=== PATIENT | male | born 1955 | race Caucasian/White ===

== ENCOUNTER 2018-12-15 10:26 | Observation (INO) | payer BC ==
[2018-12-15] MEDS ORDERED: ASPIRIN 81 MG TABLET, CHEWABLE PO ONE (10:47)
[2018-12-15 11:06] LABS: ABSOLUTE BASOPHILS # (AUTO) 0.1 10^3/uL (0.0-0.2); ABSOLUTE EOSINOPHILS # (AUTO) 0.2 10^3/uL (0.0-0.6); ABSOLUTE LYMPHOCYTES (AUTO) 1.6 10^3/uL (0.5-4.7); ABSOLUTE MONOCYTES (AUTO) 0.7 10^3/uL (0.1-1.4); ABSOLUTE NEUT (AUTO) 1.9 10^3/uL (1.7-8.2); BASOPHILS % (AUTO) 1.3 % (0-2); HEMATOCRIT 43.8 % (37.9-51.0); LYMPHOCYTES % (AUTO) 36.7 % (13-45); MEAN CORPUSCULAR HEMOGLOBIN 30.5 pg (27.0-33.4); MEAN CORPUSCULAR HGB CONC 34.3 g/dL (32.0-36.0); MEAN CORPUSCULAR VOLUME 89 fl (80-97); MONOCYTES % (AUTO) 16.3 % (3-13); PLATELET COUNT 196 10^3/uL (150-450); RED BLOOD COUNT 4.91 10^6/uL (4.35-5.55); RED CELL DISTRIBUTION WIDTH 13.7 % (11.5-14.0); SEGMENTED NEUTROPHILS % (AUTO) 41.7 % (42-78); TOTAL CELLS COUNTED % (AUTO) 100 %; WHITE BLOOD COUNT 4.5 10^3/uL (4.0-10.5)
[2018-12-15] MEDS ORDERED: DILTIAZEM HCL INJ 25 MG/5 ML VIAL IV ONE (11:09)
[2018-12-15] MEDS ORDERED: NORMAL SALINE 1000 ML 1,000 ML IV ONE (11:09)
[2018-12-15 11:29] LABS: ALBUMIN 4.4 g/dL (3.5-5.0); ALKALINE PHOSPHATASE 41 U/L (38-126); ANION GAP 8 (5-19); ASPARTATE AMINO TRANSFERASE 30 U/L (17-59); BILIRUBIN,DIRECT 0.4 mg/dL (0.0-0.4); BILIRUBIN,TOTAL 0.7 mg/dL (0.2-1.3); BLOOD UREA NITROGEN 18 mg/dL (7-20); CALCIUM 9.6 mg/dL (8.4-10.2); CARBON DIOXIDE 25 mmol/L (22-30); CHLORIDE 107 mmol/L (98-107); CREATINE KINASE 165 U/L (55-170); GLUCOSE 97 mg/dL (75-110); POTASSIUM 4.7 mmol/L (3.6-5.0); TOTAL PROTEIN 6.9 g/dL (6.3-8.2)
--- NOTE | 2018-12-15 11:40 | ER Document Report ---
Entered by LAUREEN SEGAL SCRIBE 12/15/18 1114 Acting as scribe for:DIANNA GRAY MD ED Cardiac - General Chief Complaint: Chest Pain Stated Complaint: CHEST PAIN Time Seen by Provider: 12/15/18 10:54 Mode of Arrival: Ambulatory Information source: Patient Notes: 63 year old male with history of right RCA stent placed in 2016 in [place] that presents today with complaints of chest pain that radiated up into his jaw with associated nausea. He states he did feel little dizzy when he stood up. Patient states these symptoms are quite similar to the symptoms he had prior to having the stent placed. He also reports that he did not sleep well last night that he tossed and turned since 3 AM when he woke up with back pain. He does have a history of low back p ain with surgeries, but has not had problems in quite some time. Denies any excessive stimulant use such as caffeine. Patient states he lives a very active lifestyle and is not on any medications other than a baby aspirin a day and fish oil. Patient states he was on atorvastatin in the past but he took himself off about a year ago as his cholesterol had corrected. Patient denies a history of atrial fibrillation. TRAVEL OUTSIDE OF THE [place] IN LAST 30 DAYS: No - Related Data Allergies/Adverse Reactions: No Known Allergies Allergy (Verified 12/15/18 10:27) Past Medical History - General Information source: Patient - Social History Smoking Status: Never Smoker Cigarette use (# per day): No Frequency of alcohol use: None Drug Abuse: None Lives with: Family Family History: Reviewed & Not Pertinent - Past Medical History Cardiac Medical History: Reports: Hx Coronary Artery Disease, Hx Hypercholesterolemia - Hx of, now diet controlled Past Surgical History: Reports: Hx Cardiac Catheterization - Right RCA stent placed 2015 Review of Systems - Review of Systems Constitutional: No symptoms reported EENT: No symptoms reported Cardiovascular: See HPI, Chest pain, Dizziness Respiratory: No symptoms reported Gastrointestinal: See HPI, Nausea Genitourinary: No symptoms reported Male Genitourinary: No symptoms reported Musculoskeletal: No symptoms reported Skin: No symptoms reported Hematologic/Lymphatic: No symptoms reported Neurological/Psychological: No symptoms reported -: Yes All other systems reviewed and negative Physical Exam - Vital signs Vitals: Resp Pulse Ox 12 94 12/15/18 10:45 12/15/18 10:45 - Notes Notes: Physical Exam: General: Alert, appears well. HEENT: Normocephalic. Atraumatic. PERRL. Extraocular movements intact. Oropharynx clear. Neck: Supple. Non-tender. Respiratory: No respiratory distress. Clear and equal breath sounds bilaterally. Cardiovascular: Irregularly irregular Abdominal: Normal Inspection. Non-tender. No distension. Normal Bowel Sounds. Back: No gross abnormalities. Extremities: Moves all four extremities. Upper extremities: Normal inspection. Normal ROM. Lower extremities: Normal inspection. No edema. Normal ROM. Neurological: Normal cognition. AAOx4. Normal speech. Psychological: Normal affect. Normal Mood. Skin: Warm. Dry. Normal color. Course - Vital Signs Vital signs: Temp Pulse Resp BP Pulse Ox 13 118/75 97 12/15/18 10:47 12/15/18 10:47 12/15/18 10:47 - Laboratory Result Diagrams: 12/15/18 10:45 12/15/18 10:45 Laboratory results interpreted by me: 12/15/18 12/15/18 10:45 10:45 Daw[place] % (Auto) 16.3 H Seg Neutrophils % 41.7 L Cholesterol 209.86 H - Diagnostic Test Radiology reviewed: Image reviewed, Reports reviewed - Chest x-ray is un remarkable - EKG Interpretation by Ks EKG shows normal: [place], Intervals, QRS Complexes, ST-T Waves Rate: Tachycardia - 139 Rhythm: A.Fib When compared to previous EKG there are: Previous EKG unavailable - Consults Dr. Mace Time consulted: 13:56 Consulted provider: will come to ER Critical Care Note - Critical Care Note Total time excluding time spent on procedures (mins): 35 Discharge - Discharge Clinical Impression: New onset atrial fibrillation, Atrial fibrillation with rapid ventricular response Chest pain Qualifiers: Chest pain type: unspecified Qualified Code(s): R07.9 - Chest pain, unspecified Coronary artery disease Qualifiers: Coronary Disease-Associated Artery/Lesion type: [place] artery [place] vs. transplanted heart: [place] heart Associated angina: angina presence unspecified Qualified Code(s): I25.10 - Atherosclerotic heart disease of [place] coronary artery without angina pectoris Condition: Stable Disposition: ADMITTED INPATIENT Admitting Provider: Nakita (Hospitalist) Unit Admitted: Telemetry Scribe Attestation: 12/15/18 14:02 I personally performed the services described in the documentation, reviewed and edited the documentation which was dictated to the scribe in my presence, and it accurately records my words and actions. I personally performed the services described in the documentation, reviewed and edited the documentation which was dictated to the scribe in my presence, and it accurately records my words and actions.
[2018-12-15 11:42] LABS: CREATINE KINASE MB 2.04 ng/mL (<4.55); TROPONIN I 0.013 ng/mL
--- NOTE | 2018-12-15 11:55 | RADIOLOGY REPORT (SQ) ---
EXAM DESCRIPTION: CHEST 2 VIEWS COMPLETED DATE/TIME: 12/15/2018 11:46 am REASON FOR STUDY: cp COMPARISON: None. EXAM PARAMETERS: NUMBER OF VIEWS: two views TECHNIQUE: Digital Frontal and Lateral radiographic views of the chest acquired. RADIATION DOSE: NA LIMITATIONS: none FINDINGS: LUNGS AND PLEURA: No opacities, masses or pneumothorax. No pleural effusion. MEDIASTINUM AND HILAR STRUCTURES: No masses or contour abnormalities. HEART AND VASCULAR STRUCTURES: Heart normal size. No evidence for failure. BONES: No acute findings. HARDWARE: None in the chest. OTHER: No other significant finding. IMPRESSION: NO ACUTE RADIOGRAPHIC FINDING IN THE CHEST. TECHNICAL DOCUMENTATION: JOB ID: [id number] [employer]- All Rights Reserved Reading location - IP/workstation name: [email or web address]
[2018-12-15 12:00] LABS: CHOLESTEROL 209.86 mg/dL (0-200)
--- NOTE | 2018-12-15 14:38 | PDOC H&P ---
History of Present Illness Admission Date/PCP: 12/15/18 14:08 History of Present Illness: LAURA VALERA is a 63 year old male with a history of coronary artery disease status post cardiac catheterization with placement of 1 stent 3 years ago who presents today after having symptoms this morning that reminded him of his event 3 years ago. He said that he found that he had muscle tension in both arms, some sweating, heart racing, but no real pain. He said that he is not had to take his nitroglycerin in quite some time, and that the prescription that he got 3 years ago is the same one that he has now. He was writing an email whenever the event happened this morning around 7:30 AM. He took 1 of the nitroglycerin and felt like it was not doing anything as of 5 minutes later he took another one and said he felt like he was getting some relief at that point. He came to the ER to be evaluated. He was found to have a normal troponin but to be in new onset atrial fibrillation with rapid ventricular response. He got 10 mg of IV Cardizem and this brought his heart rate from the 130s into the 80s. He says that he exercises regularly and is very meticulous about his diet ever since the event 3 years ago. His confirms all of this. He does not smoke. The only medications he takes at home or fish oil and an aspirin. Past Medical History Cardiac Medical History: Reports: Coronary Artery Disease, Hyperlipidema - Hx of, now diet controlled Past Surgical History Past Surgical History: Reports: Cardiac Catheterization - Right RCA stent placed 2015 Social History Lives with: Family Smoking Status: Never Smoker Family History Family History: Reviewed & Not Pertinent Parental Family History Reviewed: Yes - Hypertension Children Family History Reviewed: Yes - Nothing known Sibling(s) Family History Reviewed.: Yes Medication/Allergy Allergies/Adverse Reactions: No Known Allergies Allergy (Verified 12/15/18 10:27) Review of Systems All systems: reviewed and no additional remarkable complaints except as stated - All systems were reviewed and were negative except as noted in the HPI Physical Exam Vital Signs: Temp Pulse Resp BP Pulse Ox 13 118/75 97 12/15/18 10:47 12/15/18 10:47 12/15/18 10:47 Intake & Output 12/14/18 12/15/18 12/16/18 06:59 06:59 06:59 Intake Total 1000 Balance 1000 Weight 82.5 kg General appearance: PRESENT: no acute distress, cooperative, well-developed, well-nourished Head exam: PRESENT: atraumatic, normocephalic Eye exam: PRESENT: EOMI, PERRLA. ABSENT: conjunctival injection, nystagmus, scleral icterus Ear exam: PRESENT: normal external ear exam Mouth exam: PRESENT: moist, neck supple Throat exam: ABSENT: post pharyngeal erythema Neck exam: PRESENT: full ROM. ABSENT: carotid bruit, JVD, lymphadenopathy, meningismus, tenderness, thyromegaly Respiratory exam: PRESENT: clear to auscultation eugenio, symmetrical, unlabored. ABSENT: accessory muscle use, chest wall tenderness, crackles, prolonged expiratory phas, rhonchi, tachypnea, wheezes Cardiovascular exam: PRESENT: irregular rhythm Pulses: PRESENT: normal carotid pulses Vascular exam: PRESENT: normal capillary refill GI/Abdominal exam: PRESENT: normal bowel sounds, soft. ABSENT: distended, guarding, rebound, tenderness Extremities exam: ABSENT: clubbing, pedal edema Musculoskeletal exam: PRESENT: normal inspection. ABSENT: deformity Neurological exam: PRESENT: alert, awake, oriented to person, oriented to place, oriented to time, oriented to situation, CN II-XII grossly intact. ABSENT: motor sensory deficit Psychiatric exam: PRESENT: appropriate affect, normal mood Skin exam: PRESENT: dry, warm Results Laboratory Results: 12/15/18 10:45 12/15/18 10:45 12/15/18 12/15/18 12/15/18 10:45 10:45 10:45 WBC 4.5 RBC 4.91 Hgb 15.0 Hct 43.8 MCV 89 MCH 30.5 MCHC 34.3 RDW 13.7 Plt Count 196 Seg Neutrophils % 41.7 L Sodium 140.0 Potassium 4.7 Chloride 107 Carbon Dioxide 25 Anion Gap 8 BUN 18 Creatinine 0.75 Est GFR ( Amer) > 60 Glucose 97 Calcium 9.6 Total Bilirubin 0.7 AST 30 Alkaline Phosphatase 41 Total Protein 6.9 Albumin 4.4 Cholesterol 209.86 H 12/15/18 12/15/18 10:45 10:45 Creatine Kinase 165 CK-MB (CK-2) 2.04 Troponin I 0.013 Impressions: Chest X-Ray 12/15/18 00:00 IMPRESSION: NO ACUTE RADIOGRAPHIC FINDING IN THE CHEST. Assessment and Plan - Diagnosis (1) Atrial fibrillation with rapid ventricular response Is this a current diagnosis for this admission?: Yes Plan: Responded very well to a single dose of IV Cardizem. We will trend his troponins and start p.o. Cardizem every 6 hours. We will get an echocardiogram. Assuming he remains asymptomatic, will have a stress test for tomorrow. He has not had a cardiac evaluation of any sort since his cardiac catheterization 3 years ago when the stent was placed. His chads VASC score was 1. (2) Coronary artery disease Qualifiers: Coronary Disease-Associated Artery/Lesion type: [place] artery [place] vs. transplanted heart: [place] heart Associated angina: angina presence unspecified Qualified Code(s): I25.10 - Atherosclerotic heart disease of [place] coronary artery without angina pectoris Is this a current diagnosis for this admission?: Yes Plan: He was only on aspirin and fish oil at home. We will continue the aspirin. We will start on Lipitor. - Time Time Spent with patient: 35 or more minutes
[2018-12-15] MEDS ORDERED: REGADENOSON INJ 0.4 MG/5 ML DISP.SYRIN IV ONE (14:44)
[2018-12-15] MEDS: ENOXAPARIN SODIUM INJ 100 MG/1 ML DISP.SYRIN SUBCUT SCH (18:27)
[2018-12-15] MEDS: DILTIAZEM HCL 30 MG TABLET PO SCH ×2 (18:27→23:30)
--- NOTE | 2018-12-15 19:07 | EKG REPORT ---
SEVERITY:- ABNORMAL ECG - ATRIAL FIBRILLATION BORDERLINE LEFT AXIS DEVIATION : Confirmed by: Uri Thomas MD 15-Dec-2018 19:06:48
--- NOTE | 2018-12-15 19:07 | EKG REPORT ---
SEVERITY:- ABNORMAL ECG - ATRIAL FIBRILLATION, V-RATE 115-160 BORDERLINE PROLONGED QT INTERVAL : Confirmed by: Uri Thomas MD 15-Dec-2018 19:07:07
[2018-12-15] MEDS ORDERED: DEXTROSE 50%-WATER 25 GM/50 ML DISP.SYRIN IV PRN ×2 (20:03)
[2018-12-15] MEDS ORDERED: DEXTROSE 40% GEL 15 GM TUBE PO PRN ×2 (20:03)
[2018-12-15] MEDS ORDERED: GLUCAGON,HUMAN RECOMB 1 MG INJ SUBCUT PRN (20:03)
[2018-12-15] MEDS ORDERED: ATORVASTATIN CALCIUM 40 MG TABLET PO SCH (22:00)
[2018-12-16 03:19] LABS: HEMOGLOBIN 13.5 g/dL (13.5-17.0); MEAN CORPUSCULAR HEMOGLOBIN 30.9 pg (27.0-33.4); MEAN CORPUSCULAR HGB CONC 34.5 g/dL (32.0-36.0); MEAN CORPUSCULAR VOLUME 90 fl (80-97); PLATELET COUNT 159 10^3/uL (150-450); RED BLOOD COUNT 4.36 10^6/uL (4.35-5.55); WHITE BLOOD COUNT 4.6 10^3/uL (4.0-10.5)
[2018-12-16 03:43] LABS: ANION GAP 7 (5-19); BLOOD UREA NITROGEN 19 mg/dL (7-20); CARBON DIOXIDE 26 mmol/L (22-30); CHLORIDE 105 mmol/L (98-107); CHOLESTEROL 174.16 mg/dL (0-200); GLUCOSE 89 mg/dL (75-110); POTASSIUM 4.3 mmol/L (3.6-5.0); TRIGLYCERIDES 100 mg/dL (<150)
[2018-12-16] MEDS ORDERED: NORMAL SALINE 500 ML IV ONE (03:45)
[2018-12-16 03:54] LABS: DIRECT LDL 119 mg/dL (<100)
[2018-12-16] MEDS: DILTIAZEM HCL 30 MG TABLET PO SCH ×3 (05:11→18:19)
[2018-12-16] MEDS: ENOXAPARIN SODIUM INJ 100 MG/1 ML DISP.SYRIN SUBCUT SCH ×2 (05:29→18:19)
--- NOTE | 2018-12-16 07:16 | EKG REPORT ---
SEVERITY:- OTHERWISE NORMAL ECG - SINUS BRADYCARDIA : Confirmed by: Uri Thomas MD 16-Dec-2018 07:15:33
--- NOTE | 2018-12-16 07:16 | EKG REPORT ---
SEVERITY:- OTHERWISE NORMAL ECG - SINUS BRADYCARDIA : Confirmed by: Uri Thomas MD 16-Dec-2018 07:15:44
[2018-12-16] MEDS ORDERED: ASPIRIN 81 MG TABLET, CHEWABLE PO SCH (10:00)
[2018-12-16 17:55] VITALS: BP 122/68
--- NOTE | 2018-12-16 21:25 | DRAGON STRESS TEST REPORT ---
Intravenous Lexiscan Cardiolite stress test using single photon emmision computerized tomography. Date of procedure: 12/16/2018.Ordering Provider: Dr. Ronny Mace. Patient's status: In Patient. Indication: Chest pain, in a patient with a history of CAD, RCA stent and paroxysmal atrial fibrillation.. Coronary risk factors: Age, and dyslipidemia. Resting EKG: Sinus Rhythm. Within Normal Limits. Stress EKG: No changes of ischemia. The patient had no chest pain or discomfort, and there were no arrhythmias seen. Reason for termination: Protocol. Conclusions: Normal EKG and hemodynamic response to IV Lexiscan. Nuclear data: At rest the patient was given 1.48 millicuries of technetium 99m sestamibi injected intravenously. As per protocol rest non gated SPECT images were obtained. Subsequently the patient was given intravenous Lexiscan at a dose of 0.4 mg in 5 mL intravenously, followed by flush with normal saline. Subsequently the stress dose of 37.2 millicuries of technetium 99m sestamibi was injected intravenously. As per protocol stress gated images were obtained. Nuclear interpretation: Review of images showed that there is a small area of perfusion defect in the stress images involving a small area of the left ventricle apex, which normalizes in the rest images. This area had normal motion contraction and thickening by gated study. The rest of the segments of the myocardium had normal perfusion at rest, and normal perfusion post stress with IV Lexiscan. All segments of the myocardium had normal motion, contraction, and thickening by gated study. T. I D. ratio was normal at 1.10. There is no transient ischemic dilatation of the left ventricle. Computer read rest, and stress left ventricular ejection fraction were 54 %, and 49 %, respectively. Visually both the stress and rest ejection fractions were normal, and greater than 55%. Conclusion: 1. There is scintigraphic evidence of Lexiscan induced myocardial ischemia involving a small area of the left ventricle apex. 2. There is no scintigraphic evidence of myocardial infarction/scar. Recommendations: 1. Aggressive treatment of coronary artery disease. 2. Aggressive risk factor modification, and treating the underlying co- morbidities. Correlate clinically. MTDD
--- NOTE | 2018-12-17 19:30 | XCELERA REPORT ---
[address] [address] Transthoracic Echocardiogram Report Name: LAURA VALERA Age: 63 yrs Gender: Male : 1955 Patient Status: Inpatient Patient Location: [address] [place] [address] Study Date: 12/16/2018 09:30 AM Height: 70 in Weight: 182 lb BSA: 2.0 m2 Procedure: A two-dimensional transthoracic echocardiogram with color flow and Doppler was performed. The study was technically limited with all images being suboptimal in quality. Reason For Study: new-onset atrial fibrillation History: new-onset atrial fibrillation. Ordering Physician: SYDNEE TELLEZ Performed By: Ana Al Interpretation Summary The left ventricle is normal in size. There is normal left ventricular wall thickness. The left ventricular ejection fraction is normal. LV EF is 65% Doppler measurements suggest normal left ventricular diastolic function The left ventricular wall motion is normal. There is no thrombus. No subcostal views hence cannot assess ASD,VSD ,or PFO. The right ventricle is normal in size and function. The right atrium is normal. The left atrial size is normal. There is no evidence of mitral valve prolapse. There is no vegetation seen on the mitral valve. There is no mitral valve stenosis. There is a trace amount of mitral regurgitation There is no aortic valvular vegetation. There is no aortic valve stenosis There is no LVOT obstruction. There is a trace to mild amount of aortic regurgitation There is no tricuspid stenosis. There is a trace amount of tricuspid regurgitation Right ventricular systolic pressure is normal. RVSP is 23 mm of Hg , with RA mean of 10. There is no pulmonic valvular stenosis. There is a trace amount of pulmonic regurgitation The aortic root is normal size. The inferior vena cava was not visualized There is no pericardial effusion. MMode/2D Measurements & Calculations RVDd: 3.6 cm LVIDd: 5.2 cm FS: 39.7 % Ao root diam: 3.6 cm IVSd: 0.85 cm LVIDs: 3.1 cm EDV(Teich): 126.7 ml Ao root area: 9.9 cm2 LVPWd: 0.95 cm ESV(Teich): 38.2 ml EF(Teich): 69.9 % Doppler Measurements & Calculations MV E max gaston: MV dec slope: Ao V2 max: AI max gaston: 53.4 cm/sec 249.2 cm/sec2 125.5 cm/sec 369.4 cm/sec MV A max gaston: MV dec time: Ao max PG: AI max P.6 mmHg 49.9 cm/sec 0.21 sec 6.3 mmHg AI dec slope: MV E/A: 1.1 125.8 cm/sec2 AI P1/2t: 860.2 msec LV V1 max PG: PA V2 max: PI end-d gaston: TR max gaston: 3.7 mmHg 90.0 cm/sec 85.1 cm/sec 180.0 cm/sec LV V1 max: PA max P.2 mmHg TR max P.0 mmHg 96.1 cm/sec Pulm Sys Gaston: 47.3 cm/sec Pulm Mireles Gaston: 43.0 cm/sec Pulm A Revs Gaston: 21.9 cm/sec Pulm A Revs Dur: 0.12 sec Pulm S/D: 1.1 Left Ventricle The left ventricle is normal in size. There is normal left ventricular wall thickness. The left ventricular ejection fraction is normal. LV EF is 65%. Doppler measurements suggest normal left ventricular diastolic function. The left ventricular wall motion is normal. There is no thrombus. No subcostal views hence cannot assess ASD,VSD ,or PFO. Right Ventricle The right ventricle is normal in size and function. Atria The right atrium is normal. The left atrial size is normal. Mitral Valve There is no evidence of mitral valve prolapse. There is no vegetation seen on the mitral valve. There is no mitral valve stenosis. There is a trace amount of mitral regurgitation. Aortic Valve There is no aortic valvular vegetation. There is no aortic valve stenosis. There is no LVOT obstruction. There is a trace to mild amount of aortic regurgitation. Tricuspid Valve There is no tricuspid stenosis. There is a trace amount of tricuspid regurgitation. Right ventricular systolic pressure is normal. RVSP is 23 mm of Hg , with RA mean of 10. Pulmonic Valve There is no pulmonic valvular stenosis. There is a trace amount of pulmonic regurgitation. Great Vessels The aortic root is normal size. The inferior vena cava was not visualized. Effusions There is no pericardial effusion. : SYDNEE TELLEZ Lakshmi
--- NOTE | 2018-12-19 18:18 | PDOC DISCHARGE SUMMARY ---
General - Admit/Disc Date/PCP Admission Date/Primary Care Provider: 12/15/18 14:08 Discharge Date: 12/16/18 - Discharge Diagnosis (1) Atrial fibrillation with rapid ventricular response Is this a current diagnosis for this admission?: Yes Summary: Resolved. Patient has converted back to NSR and remains rate controlled on oral diltiazem. [id number] Score: 0; 0.2% yearly CVA risk. Patient is encouraged to continue daily aspirin therapy; he has not started on chronic anticoagulation at this time. (2) Chest pain Is this a current diagnosis for this admission?: Yes Summary: Resolved; patient has had no further episodes of chest discomfort Initially presented in Afib w/ RVR. He is now in normal sinus rhythm. Troponins 0.013-> 0.288-> 0.306-> 0.181 Nuclear stress test revealed evidence of Lexiscan induced myocardial ischemia involving a small area of the left ventricle apex. There was no evidence of my ocardial infarction. Spoke with Dr. Lane prior to patient discharge. Recommended aggressive medical treatment with close cardiology follow-up. Patient did confirm that he is established with a fire prevention research engineer in [place]. He is instructed to contact their office on the next business days to notify them of his admission and findings; follow-up as directed. Patient is discharged home with instructions to continue daily aspirin therapy and with prescriptions for diltiazem and nitroglycerin SL tabs. He is advised to return to the emergency department as needed for concerning symptoms. (3) Coronary artery disease Is this a current diagnosis for this admission?: Yes Summary: Continue aspirin, omega-3 fatty acid oil, diltiazem. Evaluation and management as above. (4) New onset atrial fibrillation Is this a current diagnosis for this admission?: Yes Summary: PAF; patient now in normal sinus rhythm. Continue diltiazem 30 mg every 8 hours. Follow-up with outpatient cardiology. - Additional Information Resuscitation Status: Full Code Discharge Diet: Cardiac Discharge Activity: Activity As Tolerated, Balance Activity w/Rest Prescriptions: Diltiazem HCl [Cardizem 30 mg Tablet] 1 tab PO Q8 #90 tab Nitroglycerin [Nitrostat 0.4 mg (1/150 Gr) Tabs 25/Bottle] 1 tab SL Q5MP PRN #25 tab.subl PRN Reason: Home Medications: Aspirin [Adult Low Dose Aspirin EC] 81 mg PO DAILY 12/15/18 [place]-3 Fatty Acids/Fish Oil [Fish Oil 1,000 mg Capsule] 1,800 mg PO DAILY 12/15/18 Diltiazem HCl [Cardizem 30 mg Tablet] 1 tab PO Q8 #90 tab 12/16/18 Nitroglycerin [Nitrostat 0.4 mg (1/150 Gr) Tabs 25/Bottle] 1 tab SL Q5MP PRN #25 tab.subl 12/16/18 History of Present Illness History of Present Illness: Per H&P by Dr. Mace: LAURA VALERA is a 63 year old male with a history of coronary artery disease status post cardiac catheterization with placement of 1 stent 3 years ago who presents today after having symptoms this morning that reminded him of his event 3 years ago. He said that he found that he had muscle tension in both arms, some sweating, heart racing, but no real pain. He said that he is not had to take his nitroglycerin in quite some time, and that the prescription that he got 3 years ago is the same one that he has now. He was writing an email whenever the event happened this morning around 7:30 AM. He took 1 of the nitroglycerin and felt like it was not doing anything as of 5 minutes later he took another one and said he felt like he was getting some relief at that point. He came to the ER to be evaluated. He was found to have a normal troponin but to be in new onset atrial fibrillation with rapid ventricular response. He got 10 mg of IV Cardizem and this brought his heart rate from the 130s into the 80s. He says that he exercises regularly and is very meticulous about his diet ever since the event 3 years ago. His confirms all of this. He does not smoke. The only medications he takes at home or fish oil and an aspirin. Physical Exam Vital Signs: Temp Pulse Resp BP Pulse Ox 98.4 F 57 L 18 122/68 100 12/16/18 17:08 12/16/18 17:08 12/16/18 17:08 12/16/18 17:08 12/16/18 17:08 General appearance: PRESENT: no acute distress, cooperative, well-developed, well-nourished - Overweight Head exam: PRESENT: atraumatic, normocephalic Eye exam: PRESENT: conjunctiva pink, EOMI, PERRLA. ABSENT: scleral icterus Ear exam: PRESENT: normal external ear exam Mouth exam: PRESENT: moist, tongue midline Neck exam: ABSENT: carotid bruit, JVD, lymphadenopathy, thyromegaly Respiratory exam: PRESENT: clear to auscultation eugenio, symmetrical, unlabored. ABSENT: rales, rhonchi, wheezes Cardiovascular exam: PRESENT: RRR, +S1, +S2. ABSENT: diastolic murmur, rubs, systolic murmur Pulses: PRESENT: normal dorsalis pedis pul Vascular exam: PRESENT: normal capillary refill GI/Abdominal exam: PRESENT: normal bowel sounds, soft. ABSENT: distended, guarding, mass, organolmegaly, rebound, tenderness Rectal exam: PRESENT: deferred Extremities exam: PRESENT: full ROM. ABSENT: calf tenderness, clubbing, pedal edema Neurological exam: PRESENT: alert, awake, oriented to person, oriented to place, oriented to time, oriented to situation, CN II-XII grossly intact. ABSENT: motor sensory deficit Psychiatric exam: PRESENT: appropriate affect, normal mood. ABSENT: homicidal ideation, suicidal ideation Skin exam: PRESENT: dry, intact, warm. ABSENT: cyanosis, rash Results Laboratory Results: 12/16/18 02:29 12/16/18 02:29 12/15/18 12/15/18 12/15/18 10:45 10:45 14:47 Creatine Kinase 165 CK-MB (CK-2) 2.04 Troponin I 0.013 0.288 12/15/18 12/16/18 20:50 02:29 Creatine Kinase CK-MB (CK-2) Troponin I 0.306 0.181 Impressions: Chest X-Ray 12/15/18 00:00 IMPRESSION: NO ACUTE RADIOGRAPHIC FINDING IN THE CHEST. Qualifiers - * PATIENT BEING DISCHARGED WITH ANY OF THE FOLLOWING DIAGNOSIS: No Acute Heart Failure - Is this a Heart Failure Patient?: No Plan Discharge Plan: Discharged to home with self-care. Follow-up with primary care provider within 1 week. Patient is instructed to call his established fire prevention research engineer and follow-up as instructed. Continue daily aspirin therapy. Return to the emergency department as needed for concerning symptoms. Time Spent: Greater than 30 Minutes
== END 2018-12-16 20:14 | disposition home or self-care (01) ==
LOC: ER 10:26 → INTOOBSV 14:08 → EH 14:08 → 5 16:21
PROVIDERS: ADMIT Family Medicine; ATTEND Family Medicine
DX: I48.91 Unspecified atrial fibrillation (principal); R07.89 Other chest pain; I25.10 Atherosclerotic heart disease of native coronary artery without angina pectoris; R11.0 Nausea; M54.9 Dorsalgia, unspecified; Z79.899 Other long term (current) drug therapy; Z79.82 Long term (current) use of aspirin; Z95.5 Presence of coronary angioplasty implant and graft; Z82.49 Family history of ischemic heart disease and other diseases of the circulatory system; Z98.890 Other specified postprocedural states
CPT/HCPCS: 93005 ×2; 99291; 96361; 96374; 36415 ×2; 82553; 82465; 82550; 84443; 85025; 85027; 80048; 80053; 84484 ×2; 80061; 93306; 93017; 71046; 78452; 93010 ×2; G0378 ×3; A9500; J2785; J3490 ×3; J7030; J7040; J1650 ×2; Q9969

== ENCOUNTER 2019-04-08 11:09 | Emergency (ER) | payer BC ==
[2019-04-08] MEDS ORDERED: ASPIRIN 81 MG TABLET, CHEWABLE PO ONE (12:04)
--- NOTE | 2019-04-08 12:09 | ER Document Report ---
ED Medical Screen (RME) - General Stated Complaint: CHEST PAIN Time Seen by Provider: 04/08/19 11:58 Mode of Arrival: Ambulatory Information source: Patient Notes: 63-year-old male patient with chest pain that began yesterday at 5:30 PM. Patient reports history of NE x1 with 1 stent placement several years ago. He sees a director of capital giving in [place]. He reports when he started having chest pain he was at an airport waiting on a flight, he states he had associated shortness of breath, nausea and felt dizzy. Patient reports he was told if he ever had symptoms like that to come to the emergency department immediately. At this time patient currently denies any chest pain. Patient took 1 baby aspirin this morning, appropriate dose ordered. Exam: Lung sounds clear and equal bilaterally. Heart sounds S1-S2 present with no ectopy noted. EKG reviewed, no obvious ST elevations or depressions. Patient alert, oriented, answering all questions, no acute distress noted. I have greeted and performed a rapid initial assessment of this patient. A comprehensive ED assessment and evaluation of the patient, analysis of test results and completion of the medical decision making process will be conducted by additional ED providers. I have specifically instructed the patient or family members with the patient to immediately return to any nursing staff should anything change in the patient's condition or with their chief complaint. This medical record was dictated with voice recognizing software. There may be grammatical, syntax errors that are unintended. TRAVEL OUTSIDE OF THE [place] IN LAST 30 DAYS: No - Related Data Allergies/Adverse Reactions: latex Adverse Reaction (Verified 04/08/19 11:56) Past Medical History - Past Medical History Cardiac Medical History: Reports: Hx Coronary Artery Disease, Hx Heart Attack, Hx Hypercholesterolemia - Hx of, now diet controlled Renal/ Medical History: Denies: Hx Peritoneal Dialysis GI Medical History: Reports: Hx Gastroesophageal Reflux Disease Musculoskeltal Medical History: Reports Hx Arthritis Past Surgical History: Reports: Hx Cardiac Catheterization - Right RCA stent placed 2015 Physical Exam - Vital signs Vitals: Temp Pulse Resp BP Pulse Ox 97.7 F 57 L 18 130/70 H 98 04/08/19 11:23 04/08/19 11:23 04/08/19 11:23 04/08/19 11:23 04/08/19 11:23 Course - Vital Signs Vital signs: Temp Pulse Resp BP Pulse Ox 97.7 F 57 L 18 130/70 H 98 04/08/19 11:23 04/08/19 11:23 04/08/19 11:23 04/08/19 11:23 04/08/19 11:23
--- NOTE | 2019-04-08 13:35 | RADIOLOGY REPORT (SQ) ---
EXAM DESCRIPTION: CHEST 2 VIEWS COMPLETED DATE/TIME: 04/08/2019 1:16 pm REASON FOR STUDY: chest pain, hx of RI COMPARISON: PA and lateral views of the chest from 12/15/2018. EXAM PARAMETERS: NUMBER OF VIEWS: two views TECHNIQUE: PA and lateral views of the chest were obtained. RADIATION DOSE: NA LIMITATIONS: none FINDINGS: LUNGS AND PLEURA: No consolidation, pleural effusion or pneumothorax. MEDIASTINUM AND HILAR STRUCTURES: No mediastinal or hilar contour abnormality. HEART AND VASCULAR STRUCTURES: The cardiac silhouette and pulmonary vasculature are within normal jean-baptiste its. BONES: No acute findings. HARDWARE: None in the chest. OTHER: No other finding. IMPRESSION: No acute cardiopulmonary process. TECHNICAL DOCUMENTATION: JOB ID: [id number] [employer]- All Rights Reserved Reading location - IP/workstation name: [email or web address]
[2019-04-08 14:36] LABS: ABSOLUTE BASOPHILS # (AUTO) 0.1 10^3/uL (0.0-0.2); ABSOLUTE EOSINOPHILS # (AUTO) 0.3 10^3/uL (0.0-0.6); ABSOLUTE LYMPHOCYTES (AUTO) 2.5 10^3/uL (0.5-4.7); ABSOLUTE MONOCYTES (AUTO) 0.5 10^3/uL (0.1-1.4); ABSOLUTE NEUT (AUTO) 2.9 10^3/uL (1.7-8.2); BASOPHILS % (AUTO) 1.2 % (0-2); EOSINOPHILS % (AUTO) 5.4 % (0-6); HEMATOCRIT 40.7 % (37.9-51.0); LYMPHOCYTES % (AUTO) 40.1 % (13-45); MEAN CORPUSCULAR HGB CONC 34.5 g/dL (32.0-36.0); MEAN CORPUSCULAR VOLUME 90 fl (80-97); MONOCYTES % (AUTO) 7.3 % (3-13); PLATELET COUNT 185 10^3/uL (150-450); RED BLOOD COUNT 4.52 10^6/uL (4.35-5.55); RED CELL DISTRIBUTION WIDTH 14.1 % (11.5-14.0); TOTAL CELLS COUNTED % (AUTO) 100 %; WHITE BLOOD COUNT 6.3 10^3/uL (4.0-10.5)
[2019-04-08 14:39] LABS: ALBUMIN 4.3 g/dL (3.5-5.0); ALKALINE PHOSPHATASE 41 U/L (38-126); ANION GAP 8 (5-19); ASPARTATE AMINO TRANSFERASE 27 U/L (17-59); BILIRUBIN,DIRECT 0.1 mg/dL (0.0-0.4); BILIRUBIN,TOTAL 0.5 mg/dL (0.2-1.3); BLOOD UREA NITROGEN 16 mg/dL (7-20); CALCIUM 9.5 mg/dL (8.4-10.2); CARBON DIOXIDE 29 mmol/L (22-30); CHLORIDE 104 mmol/L (98-107); GLUCOSE 92 mg/dL (75-110); TOTAL PROTEIN 6.9 g/dL (6.3-8.2)
[2019-04-08 14:40] LABS: POTASSIUM 4.6 mmol/L (3.6-5.0)
[2019-04-08] MEDS ORDERED: ENOXAPARIN SODIUM INJ 100 MG/1 ML DISP.SYRIN SUBCUT SCH ×2 (16:30→16:45)
[2019-04-08 20:45] VITALS: BP 122/78
--- NOTE | 2019-04-08 20:47 | ER Document Report ---
Entered by LAUREEN SEGAL SCRIBE 04/08/19 1506 Acting as scribe for:ALBERTO GERMAN IV, MD ED Cardiac - General Chief Complaint: Chest Pain Stated Complaint: CHEST PAIN Time Seen by Provider: 04/08/19 11:58 Mode of Arrival: Ambulatory Information source: Patient Notes: This 63 year old male patient presents to the emergency department today with complaints of a heart racing sensation with associated chest pain which began this morning at around 6:00am. Patient reports that he was [place] [facility] when his symptoms began. Patient reports feeling very lightheaded along with this heart rate of 180s and his chest pain. Patient states he took 3 NTG without much change. Patient states the pain radiated up to his neck. On arrival here, the patient's heart rate had normalized into the upper 50s. Patient has not missed any medication. TRAVEL OUTSIDE OF THE [place] IN LAST 30 DAYS: No - Related Data Allergies/Adverse Reactions: latex Adverse Reaction (Verified 04/08/19 11:56) Home Medications: Diltiazem Past Medical History - General Information source: Patient - Social History Smoking Status: Unknown if Ever Smoked Cigarette use (# per day): No Frequency of alcohol use: None Lives with: Family Family History: Reviewed & Not Pertinent Patient has suicidal ideation: No Patient has homicidal ideation: No - Past Medical History Cardiac Medical History: Reports: Hx Atrial Fibrillation, Hx Coronary Artery Disease, Hx Heart Attack, Hx Hypercholesterolemia - Hx of, now diet controlled Renal/ Medical History: Denies: Hx Peritoneal Dialysis GI Medical History: Reports: Hx Gastroesophageal Reflux Disease Musculoskeletal Medical History: Reports Hx Arthritis Past Surgical History: Reports: Hx Cardiac Catheterization - Right RCA stent placed 2016 Review of Systems - Review of Systems Constitutional: No symptoms reported EENT: No symptoms reported Cardiovascular: See HPI, Chest pain, Heart racing Respiratory: See HPI, Short of breath Gastrointestinal: No symptoms reported Genitourinary: No symptoms reported Male Genitourinary: No symptoms reported Musculoskeletal: No symptoms reported Skin: No symptoms reported Hematologic/Lymphatic: No symptoms reported Neurological/Psychological: See HPI, Anxiety -: Yes All other systems reviewed and negative Physical Exam - Vital signs Vitals: Temp Pulse Resp BP Pulse Ox 97.7 F 57 L 18 130/70 H 98 04/08/19 11:10 04/08/19 11:10 04/08/19 11:10 04/08/19 11:10 04/08/19 11:10 - Notes Notes: Physical Exam: General: Alert, appears well. HEENT: Normocephalic. Atraumatic. PERRL. Extraocular movements intact. Oropharynx clear. Neck: Supple. Non-tender. Respiratory: No respiratory distress. Clear and equal breath sounds bilaterally. Cardiovascular: Regular rate and rhythm. Abdominal: Normal Inspection. Non-tender. No distension. Normal Bowel Sounds. Back: No gross abnormalities. Extremities: Moves all four extremities. Upper extremities: Normal inspection. Normal ROM. Lower extremities: Normal inspection. No edema. Normal ROM. Neurological: Normal cognition. AAOx4. Normal speech. Psychological: Normal affect. Normal Mood. Skin: Warm. Dry. Normal color. Course - Re-evaluation Re-evalutation: 04/08/19 20:46 TRANSPORT HAS ARRIVED FOR PT. PT SITTING UP IN BED IN NAD, DENIES CHEST PAIN. - Vital Signs Vital signs: Temp Pulse Resp BP Pulse Ox 97.9 F 57 L 12 122/78 99 04/08/19 20:41 04/08/19 11:23 04/08/19 20:41 04/08/19 20:41 04/08/19 20:41 - Laboratory Result Diagrams: 04/08/19 13:48 04/08/19 13:48 Laboratory results interpreted by me: 04/08/19 13:48 RDW 14.1 H Discharge - Discharge Clinical Impression: NSTEMI (non-ST elevated myocardial infarction) Condition: Good Disposition: [facility] I personally performed the services described in the documentation, reviewed and edited the documentation which was dictated to the scribe in my presence, and it accurately records my words and actions.
--- NOTE | 2019-04-09 17:26 | EKG REPORT ---
SEVERITY:- OTHERWISE NORMAL ECG - SINUS RHYTHM LEFT AXIS DEVIATION : Confirmed by: Fransisca Montiel 09-Apr-2019 17:25:53
== END 2019-04-08 20:50 | disposition short-term general hospital (02) ==
LOC: ER 11:09
DX: I21.4 Non-ST elevation (NSTEMI) myocardial infarction (principal); R07.9 Chest pain, unspecified; R00.0 Tachycardia, unspecified; I48.91 Unspecified atrial fibrillation; I25.10 Atherosclerotic heart disease of native coronary artery without angina pectoris; E78.00 Pure hypercholesterolemia, unspecified; I25.2 Old myocardial infarction; Z91.040 Latex allergy status
CPT/HCPCS: 93005; 99285; 96372; 36415; 85025; 80053; 84484; 71046; 93010; J1650